=== PATIENT | male | born 1945 | race Caucasian/White ===

== ENCOUNTER 2024-03-27 14:00 | Inpatient (IN) | payer OTHER, MEDICARE ==
[2024-03-27] MEDS ORDERED: Lidocaine 2% Viscous Solution 15 ML UD PO PRN (15:41)
[2024-03-27] MEDS ORDERED: Ondansetron 4 MG Tab.DIS PO PRN (15:43)
[2024-03-27] MEDS ORDERED: AIRSUPRA INH PRN (15:51)
[2024-03-27] MEDS: FENTANYL TRDERM SCH (16:44)
[2024-03-27] MEDS ORDERED: Polyethylene Glycol 3350 Powder 17 GM Packet PO PRN (17:24)
[2024-03-27] MEDS: Dexamethasone 4 MG/ML SDV PO SCH (21:59)
[2024-03-27] MEDS: LORazepam ORAL Concentrate 1MG/0.5ML U/D PO PRN (22:04)
[2024-03-28] MEDS: Morphine 10 MG/0.5 ML Oral Syringe PO PRN (07:12)
[2024-03-28] MEDS: FENTANYL PATCH CHECK TOP SCH (08:27)
[2024-03-28] MEDS: Bisacodyl 10 MG Supp RECTAL PRN (14:28)
[2024-03-29] MEDS: Nicotine 14 MG/24 Hr Patch TRDERM SCH (09:41)
[2024-03-30] MEDS: FENTANYL TRDERM SCH (12:18)
[2024-03-30] MEDS: fentaNYL 25 MCG/HR Transdermal Patch ONE (12:20)
[2024-03-30] MEDS: fentaNYL 12 MCG/HR Transdermal Patch ONE (12:20)
== END 2024-03-30 13:00 | disposition hospice, inpatient (51) | DRG 951 ==
LOC: JP.MS 14:00
PROVIDERS: ADMIT Hospitalist; ATTEND Hospitalist
DX: Z51.5 Encounter for palliative care (principal); I63.9 Cerebral infarction, unspecified; C34.90 Malignant neoplasm of unspecified part of unspecified bronchus or lung; G81.01 Flaccid hemiplegia affecting right dominant side; Z66 Do not resuscitate; C02.9 Malignant neoplasm of tongue, unspecified; Z75.5 Holiday relief care; Z79.51 Long term (current) use of inhaled steroids; Z79.899 Other long term (current) drug therapy
CPT/HCPCS: A9270-GY; J8540